=== PATIENT | male | born 1970 | race Caucasian/White ===

== ENCOUNTER 2023-12-08 16:22 | Emergency (ER) | payer SELFPAY ==
[2023-12-08 17:25] VITALS: BP 148/88; PULSE 71; RESP 16; TEMP 97.7; BMI 28.3
[2023-12-08] MEDS: SODIUM CHLORIDE 0.9% 500 ML INFUS.BAG IV ONE (18:15)
[2023-12-08 18:23] LABS: HEMATOCRIT 47.1 % (35.4-49); HEMOGLOBIN 15.5 G/dL (11.7-16.9); MCH 29.6 pg (25.7-33.7); MCHC 32.9 g/dl (32.0-35.9); MEAN CELL VOLUME 89.8 fl (80-96); MEAN PLT VOLUME 8.8 fl (7.5-11.1); PLATELET COUNT 279.6 10^3/uL (134-434); RBC 5.24 10^6/uL (4.00-5.60); RDW 14.3 % (11.9-15.9); WHITE BLOOD COUNT 7.7 10^3/uL (4.0-10.8)
[2023-12-08 18:42] LABS: ALBUMIN 4.1 g/dl (3.4-5.0); ALK PHOS 74 U/L (45-117); ANION GAP 6 mmol/L (4-13); BILIRUBIN,TOTAL 0.6 mg/dl (0.2-1); CALCIUM 9.4 mg/dl (8.5-10.1); CHLORIDE 102 mmol/L (98-107); CO2 27 mmol/L (21-32); CREATININE 0.8 mg/dl (0.6-1.3); GLUCOSE,RANDOM 257 mg/dl (74-106); POTASSIUM 4.3 mmol/L (3.5-5.1); SGOT/AST 19 U/L (15-37); SGPT/ALT 46 U/L (7-52); SODIUM 135 mmol/L (136-145); TOT PROT 6.4 g/dl (6.4-8.2)
[2023-12-08 18:48] LABS: PLATELET ESTIMATE ADEQUATE
[2023-12-08 19:11] LABS: VENOUS BASE EXCESS -2.1 mmol/L (-2-2); VENOUS O2 SATURATION 29.5 % (70-80); VENOUS PH 7.321 (7.310-7.410)
[2023-12-08 20:06] LABS: HIV INTERPRETATION NEGATIVE (NEGATIVE)
== END 2023-12-08 19:21 | disposition home or self-care (01) ==
LOC: FER 16:22
DX: E11.65 Type 2 diabetes mellitus with hyperglycemia (principal); R63.4 Abnormal weight loss; R35.89 Other polyuria; R63.1 Polydipsia
CPT/HCPCS: 36415; 80053; 81003; 82803; 82962; 85025; 86803; 87086; 87389; 99284-25